=== PATIENT | female | born 1970 | race Hispanic/Latino ===

== ENCOUNTER 2020-07-10 11:18 | Emergency (ER) | payer SELFPAY ==
--- NOTE | 2020-07-10 13:35 | Emergency Department Report ---
ED CPR HPI - General Chief Complaint: Cardiac Arrest/CPR Stated Complaint: CARDIAC ARREST Time Seen by Provider: 07/10/20 11:39 Source: EMS Mode of arrival: Stretcher Limitations: Other - History of Present Illness Initial Comments: Chief complaint: Cardiac arrest HPI: This is a 55-year-old female with history of atrial fibrillation, CHF, CAD status post cardiac stents who presents in cardiac arrest. History obtained from family friend and paramedics. Family friend informed me that patient was found slumped over. She appeared to be in a "diabetic coma". Patient did not have a pulse. Friend started chest compressions. Patient's initial rhythm according to EMS was ventricular fibrillation. Patient was intubated with endotracheal tube. Treated with epinephrine. Ventricular fibrillation then developed into pulseless electrical activity. Rhythm then developed into asystole. Family friend also informed medical staff that patient left AGAINST MEDICAL ADVICE twice from her home hospital [facility]. She was concerned for risk of COVID-19 infection. She was last hospitalized 1 month ago. MD Complaint: found unresponsive Place: home (Home of a family friend) Bystander CPR Performed: Yes (Family friend initiated chest compressions) Initial Findings in the Field: unresponsive, no respirations, VTACH/VFIB ROSC in the Field: No Treatments Prior to Arrival: intubation, epinephrine mgs # (Several doses of epinephrine) ED Review of Systems ROS: Stated complaint: CARDIAC ARREST Other details as noted in HPI Comment: Unobtainable due to pts medical conditions (Patient in cardiac arrest) ED Past Medical Hx - Past Medical History Previous Medical History?: Yes Hx Congestive Heart Failure: Yes Additional medical history: Atrial fibrillation. Coronary artery disease - Surgical History Past Surgical History?: Yes Additional Surgical History: Cardiac stents - Social History Smoking Status: Former Smoker ED Physical Exam - General Limitations: Other General appearance: other (Lifeless, no spontaneous movement) - Head Head exam: Present: atraumatic, normocephalic - Eye Eye exam: Present: other (Fixed dilated pupils, dry corneas) - ENT ENT exam: Present: other (Pale mucous membranes) - Neck Neck exam: Present: normal inspection - Respiratory Respiratory exam: Present: other (No spontaneous respirations) - Cardiovascular Cardiovascular Exam: Present: other (No auscultated heart sounds, no palpable pulse) - GI/Abdominal GI/Abdominal exam: Present: soft, distended - Extremities Exam Extremities exam: Present: other (Hyperpigmentation pretibial region multiple healing wounds ) - Neurological Exam Neurological exam: Present: other (Lifeless no signs of life) - Psychiatric Psychiatric exam: Present: other (Lifeless no spontaneous activity) - Skin Skin exam: Present: pallor, other (Cold to touch,) ED Medical Decision Making - Medical Decision Making Upon arrival, I obtain EMS report. Patient received full resuscitation for 42 minutes. Asystole seen on case monitor. Further resuscitation attempts deemed futile. Time of 1112. Charge nurse informed sister of patient staff performed. I performed in person notification to family friend. Critical care attestation.: If time is entered above; I have spent that time in minutes in the direct care of this critically ill patient, excluding procedure time. ED Disposition Clinical Impression: Cardiac arrest Disposition: DC-20 Is pt being admited?: No Does the pt Need Aspirin: No Condition: Stable Referrals: PRIMARY CARE, [Primary Care Provider] - 3-5 Days Time of Disposition: 11:12
== END 2020-07-10 13:00 ==
LOC: ED 11:18
DX: I46.9 Cardiac arrest, cause unspecified (principal); I50.9 Heart failure, unspecified; Z87.891 Personal history of nicotine dependence
CPT/HCPCS: 31500; 92950